=== PATIENT | male | born 1970 | race Caucasian/White ===

== ENCOUNTER 2018-06-26 20:56 | Emergency (ER) | payer OTHER ==
[~2018-06-26] VITALS: Ht 180.3 cm; Wt 97.1 kg
[~2018-06-26 20:56] MED LIST: ASPIRIN325 PO; ATIVAN0.5 MG PO; CIALIS10 MG PO; FARXIGA5 MG PO; FLOMAX0.4 MG PO; GLUCOPHAGE XR500 MG PO; HYDROCODONE-APA1 TA1 PO; LEVAQUIN 500 M500 M4 PO; LIPITOR 20 MG T20 M1 PO; LISINOPRIL20 MG PO; METFORMIN HCL500 MG PO; MOBIC7.5 MG PO; OMEPRAZOLE 20 M20 MG PO; PREDNISONE 20 M20 MG PO; TESTOSTERO200 MG/1 M IM
[2018-06-26 21:38] LABS: HEMATOCRIT 47.9 % (42.0-52.0); HEMOGLOBIN 16.5 gm/dL (14.0-18.0); MCH 31.5 pg (26.0-34.0); MCHC 34.4 g/dL (28.0-37.0); MCV 91.5 fL (80.0-100.0); RBC 5.23 mil/uL (4.50-6.00); RDW 13.3 % (10.5-14.5); WBC 7.9 thou/uL (4.0-11.0)
[2018-06-26 21:45] LABS: ANION GAP 8 mmol/L (7-16); BUN 16 mg/dL (7-18); CALCIUM 9.8 mg/dL (8.5-10.1); CHLORIDE 97 mmol/L (98-107); CO2 29 mmol/L (21-32); CREATININE 0.7 mg/dL (0.7-1.3); GLUCOSE 171 mg/dL (74-106); POTASSIUM 3.8 mmol/L (3.5-5.1); SODIUM 134 mmol/L (136-145)
[2018-06-26 21:54] LABS: ALBUMIN 4.1 g/dL (3.4-5.0); SGOT 21 U/L (15-37); SGPT 43 U/L (30-65); TOTAL BILIRUBIN 0.8 mg/dL (<0.1-1.0); TOTAL PROTEIN 7.8 g/dL (6.4-8.2); TROPONIN-I <0.06 ng/mL (<0.06)
[2018-06-27 00:48] VITALS: BP 124/71
--- NOTE | 2018-06-27 08:38 | EKG ---
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 : 1970 Requested By: Rachael Mitchell Order Number: [id number] MD: Cristobal Marin Measurements Intervals Anchor Rate: 94 P: 80 MN: 159 QRS: 71 QRSD: 91 T: QT: 345 QTc: 432 Interpretive Statements Sinus rhythm Nonspecific ST and T wave abnormality Compared to ECG 03/05/2017 20:48:35 Sinus tachycardia no longer present ST and T wave abnormality is new Electronically Signed On 06-27-2018 8:38:16 LUNCHROOM MONITOR by Cristobal Marin [email or web address] ��������������������������������������������� <ELECTRONICALLY SIGNED> ���������������������������������������� By: Cristobal Marin MD, [facility] ��������������������������������������������� 06/27/18 0838 01 01 Cristobal Marin MD, [facility] /EPI
== END 2018-06-27 00:49 | disposition home or self-care (01) ==
LOC: ER 20:56
PROVIDERS: Emergency Medicine
DX: R07.89 Other chest pain (principal); F17.210 Nicotine dependence, cigarettes, uncomplicated; E11.9 Type 2 diabetes mellitus without complications; I10 Essential (primary) hypertension; E78.5 Hyperlipidemia, unspecified; Z90.49 Acquired absence of other specified parts of digestive tract

== ENCOUNTER → 2019-03-14 | Outpatient (CLI) | payer OTHER | LOC: CAT 15:12 | DX: Z13.6 Encounter for screening for cardiovascular disorders (principal); E78.00 Pure hypercholesterolemia, unspecified; I25.10 Atherosclerotic heart disease of native coronary artery without angina pectoris ==